=== PATIENT | female | born 1965 | race Caucasian/White ===

== ENCOUNTER 2017-09-28 18:26 | Observation (INO) ==
--- NOTE | 2017-09-28 18:38 | Emergency Department Note ---
Disposition Clinical Impression: Chest pain Qualifiers: Chest pain type: unspecified Qualified Code(s): R07.9 - Chest pain, unspecified Disposition: Admitted As Inpatient Condition: Good Referrals: NONE,PCP [Primary Care Provider] - Forms: ED Satisfaction Letter Time of Disposition: 21:25 Chest Pain HPI - General Chief Complaint: ED Chest Pain Stated Complaint: MIDSTERNAL CHEST TIGHTNESS Time Seen by Provider: 09/28/17 18:30 Source: patient Mode of arrival: ambulatory Limitations: no limitations Vital Signs Reviewed: Yes Nursing Notes Reviewed: Yes - History of Present Illness HPI Narrative: 51-year-old female who presents today with episodes of chest pain. She describes it as substernal. She states it comes and goes. It radiates into her jaw and her left arm. She took some baby aspirin helped her symptoms but it keeps coming back. She is a strong family history of cardiac disease her mom and dad and brother of cardiac disease in her 30-year-old son is alert he had a heart attack. Patient states she is a former smoker. She does have high cholesterol diabetes and hypertension. She says that 2 years ago she had a workup for her heart which did not reveal anything acute. Pt complaint: chest pain - Related Data Home Medications Medication Instructions Recorded Confirmed Aspirin [Lo-Dose Aspirin EC] 81 mg PO DAILY 09/28/17 09/28/17 Metformin HCl [Glucophage] 1,000 mg PO BID 09/28/17 09/28/17 Allergies Allergy/AdvReac Type Severity Reaction Status Date / Time ibuprofen [From Motrin] Allergy See Verified 09/28/17 18:28 Comments morphine Allergy Hives Verified 09/28/17 18:28 sertraline [From Zoloft] Allergy Hives Verified 09/28/17 18:28 acetaminophen AdvReac Gastrointestinal Verified 09/28/17 18:28 [From Excedrin Migraine] Upset aspirin AdvReac Gastrointestinal Verified 09/28/17 18:28 [From Excedrin Migraine] Upset caffeine AdvReac Gastrointestinal Verified 09/28/17 18:28 [From Excedrin Migraine] Upset fenofibrate AdvReac Gastrointestinal Verified 09/28/17 18:28 Upset loratadine AdvReac Gastrointestinal Verified 09/28/17 18:28 Upset pravastatin AdvReac Gastrointestinal Verified 09/28/17 18:28 Upset ropinirole [From Requip] AdvReac Gastrointestinal Verified 09/28/17 18:28 Upset Review of Systems: ROS reviewed and negative except as per HPI Chart generated with voice recognition software Nursing notes reviewed Old records reviewed Chest Pain PMH - Past Medical History Medical history: Reports: COPD, diabetes, hypertension, other (Restless leg syndrome) Surgical history: Reports: Psychiatric history: Reports: depression - Social History Smoking Status: Never smoker Alcohol use: Reports: none Drug use: Reports: none Physical Exam Physical exam General: NAD, VSS Head: normocephalic, atraumatic Eyes: EOMI, PERRLA mouth: moist mucous membranes Neck: NO CLA, Supple Chest wall: normal rise, no crepitus, no deformity noted Lungs: moving air well, no distress Heart: RRR, no murmur Abd: soft, nontender, BS normal : deferred MSK: strength equal in all four extremities Ext: moves all four extremities, no obvious deformities Skin: cap refill normal, warm, dry neuro : CN2-12 grossly intact, A&Ox3 Psych: normal affect, not anxious Course Course Narrative: patient stable on re-examination. ekg unrevealing, cxr unrevealing, labwork shows mild wbc elevation and trop of 0.01 will repeat trop and decide disposition. patient chest pain free at this time 2130 patient chest pain free, but understands even with repeat trop negative, it is too soon to 100% rule out ACS. discussed will keep here, monitor and retest blood. patient comfortable with plan. Dr Chang accepted patient for obs. Vital Signs Temperature 97.8 F 09/28/17 18:32 Pulse Rate 74 09/28/17 18:32 Respiratory Rate 20 09/28/17 18:32 Blood Pressure 141/63 09/28/17 18:32 O2 Sat by Pulse Oximetry 96 09/28/17 18:32 Temperature 97.9 F 09/28/17 18:46 Pulse Rate 68 09/28/17 21:26 Respiratory Rate 18 09/28/17 21:26 Blood Pressure 118/60 09/28/17 21:26 O2 Sat by Pulse Oximetry 98 09/28/17 21:26 Oxygen Delivery Oxygen Delivery Room Air Chest Pain - Medical Records Medical records reviewed: Yes I reviewed the patient's medical records. - Lab Data Lab results reviewed: Yes I reviewed the patient's lab results. Result diagrams: 09/28/17 18:50 09/28/17 18:50 Lab Results 09/28/17 09/28/17 09/28/17 Range/Units 18:50 18:50 18:50 WBC 11.6 H (4.3-11.1) K/mcL RBC 4.92 (3.82-4.97) M/mcL Hgb 14.0 (11.5-15.4) g/dL Hct 42.4 (35.3-44.9) % MCV 86.2 (83.0-100.0) fL MCH 28.5 (28.0-33.3) pg MCHC 33.0 (31.6-35.5) g/dL RDW 12.1 (11.5-14.5) % Plt Count 428 H (140-400) K/mcL MPV 8.7 L (9.4-12.4) fL Immature Gran % 0.3 (0-4) % Seg Neutrophils % 48.5 % Lymphocytes % 40.2 % Monocytes % 9.1 % Eosinophils % 1.1 % Basophils % 0.8 % Neutrophils # 5.6 (1.6-8.9) K/mcL Lymphocytes # 4.7 H (0.6-4.6) K/mcL Monocytes # 1.1 (0.0-1.3) K/mcL Eosinophils # 0.1 (0.0-0.6) K/mcL Basophils # 0.1 (0.0-0.2) K/mcL PT 10.9 (9.4-12.1) Seconds INR 1.0 APTT 36.9 H (26.0-36.0) Seconds Sodium (136-145) mEq/L Potassium (3.5-4.5) mEq/L Chloride (98-109) mEq/L Carbon Dioxide (19-29) mEq/L BUN (7-20) mg/dL Creatinine (0.57-1.11) mg/dL Est GFR ( Amer) (> 60) Est GFR (Non-Af Amer) (> 60) BUN/Creatinine Ratio (6-26) Glucose (70-99) mg/dL Calculated Osmolality (280-300) Calcium (8.6-10.8) mg/dL Troponin I (0-0.03) ng/mL B-Natriuretic Peptide 27 (0-100) pg/mL Urine Color (Yellow) Urine Clarity (Clear) Urine pH (5.0-8.0) pH Units Ur Specific [place] (1.010-1.025) Urine Protein (Neg-Trace) mg/dL Urine Glucose (UA) (Normal) mg/dL Urine Ketones (Negative) mg/dL Urine Blood (Negative) Urine Nitrite (Negative) Urine Bilirubin (Negative) Urine Urobilinogen (Normal) mg/dL Ur Leukocyte Esterase (Negative) Ur Culture Indicated? (NO) Urine Opiates Screen (Dbplzn=894) ng/mL Ur Oxycodone Screen (Cutoff= 100) ng/mL Ur Barbiturates Screen (Kiztjn=297) ng/mL Ur Phencyclidine Scrn (Cutoff=25) ng/mL Ur Amphetamines Screen (Bkusdf=4766) ng/mL U Benzodiazepines Scrn (Biziku=924) ng/mL Urine Cocaine Screen (Cutoff= 300) ng/mL U Marijuana (THC) Screen (Cutoff = 50) ng/mL 09/28/17 09/28/17 09/28/17 Range/Units 18:50 18:50 18:55 WBC (4.3-11.1) K/mcL RBC (3.82-4.97) M/mcL Hgb (11.5-15.4) g/dL Hct (35.3-44.9) % MCV (83.0-100.0) fL MCH (28.0-33.3) pg MCHC (31.6-35.5) g/dL RDW (11.5-14.5) % Plt Count (140-400) K/mcL MPV (9.4-12.4) fL Immature Gran % (0-4) % Seg Neutrophils % % Lymphocytes % % Monocytes % % Eosinophils % % Basophils % % Neutrophils # (1.6-8.9) K/mcL Lymphocytes # (0.6-4.6) K/mcL Monocytes # (0.0-1.3) K/mcL Eosinophils # (0.0-0.6) K/mcL Basophils # (0.0-0.2) K/mcL PT (9.4-12.1) Seconds INR APTT (26.0-36.0) Seconds Sodium 140 (136-145) mEq/L Potassium 3.3 L (3.5-4.5) mEq/L Chloride 99 (98-109) mEq/L Carbon Dioxide 28 (19-29) mEq/L BUN 15 (7-20) mg/dL Creatinine 0.75 (0.57-1.11) mg/dL Est GFR ( Amer) > 60 (> 60) Est GFR (Non-Af Amer) > 60 (> 60) BUN/Creatinine Ratio 20 (6-26) Glucose 130 H (70-99) mg/dL Calculated Osmolality 293 (280-300) Calcium 9.9 (8.6-10.8) mg/dL Troponin I 0.01 (0-0.03) ng/mL B-Natriuretic Peptide (0-100) pg/mL Urine Color Yellow (Yellow) Urine Clarity Clear (Clear) Urine pH 5.0 (5.0-8.0) pH Units Ur Specific [place] 1.015 (1.010-1.025) Urine Protein Negative (Neg-Trace) mg/dL Urine Glucose (UA) 500 H (Normal) mg/dL Urine Ketones Negative (Negative) mg/dL Urine Blood Negative (Negative) Urine Nitrite Negative (Negative) Urine Bilirubin Negative (Negative) Urine Urobilinogen Normal (Normal) mg/dL Ur Leukocyte Esterase Negative (Negative) Ur Culture Indicated? NO (NO) Urine Opiates Screen (Weemab=395) ng/mL Ur Oxycodone Screen (Cutoff= 100) ng/mL Ur Barbiturates Screen (Ofefjm=653) ng/mL Ur Phencyclidine Scrn (Cutoff=25) ng/mL Ur Amphetamines Screen (Fbcudn=0481) ng/mL U Benzodiazepines Scrn (Oyswki=482) ng/mL Urine Cocaine Screen (Cutoff= 300) ng/mL U Marijuana (THC) Screen (Cutoff = 50) ng/mL 09/28/17 09/28/17 Range/Units 18:55 20:38 WBC (4.3-11.1) K/mcL RBC (3.82-4.97) M/mcL Hgb (11.5-15.4) g/dL Hct (35.3-44.9) % MCV (83.0-100.0) fL MCH (28.0-33.3) pg MCHC (31.6-35.5) g/dL RDW (11.5-14.5) % Plt Count (140-400) K/mcL MPV (9.4-12.4) fL Immature Gran % (0-4) % Seg Neutrophils % % Lymphocytes % % Monocytes % % Eosinophils % % Basophils % % Neutrophils # (1.6-8.9) K/mcL Lymphocytes # (0.6-4.6) K/mcL Monocytes # (0.0-1.3) K/mcL Eosinophils # (0.0-0.6) K/mcL Basophils # (0.0-0.2) K/mcL PT (9.4-12.1) Seconds INR APTT (26.0-36.0) Seconds Sodium (136-145) mEq/L Potassium (3.5-4.5) mEq/L Chloride (98-109) mEq/L Carbon Dioxide (19-29) mEq/L BUN (7-20) mg/dL Creatinine (0.57-1.11) mg/dL Est GFR ( Amer) (> 60) Est GFR (Non-Af Amer) (> 60) BUN/Creatinine Ratio (6-26) Glucose (70-99) mg/dL Calculated Osmolality (280-300) Calcium (8.6-10.8) mg/dL Troponin I 0.00 (0-0.03) ng/mL B-Natriuretic Peptide (0-100) pg/mL Urine Color (Yellow) Urine Clarity (Clear) Urine pH (5.0-8.0) pH Units Ur Specific [place] (1.010-1.025) Urine Protein (Neg-Trace) mg/dL Urine Glucose (UA) (Normal) mg/dL Urine Ketones (Negative) mg/dL Urine Blood (Negative) Urine Nitrite (Negative) Urine Bilirubin (Negative) Urine Urobilinogen (Normal) mg/dL Ur Leukocyte Esterase (Negative) Ur Culture Indicated? (NO) Urine Opiates Screen Negative (Bdpoup=268) ng/mL Ur Oxycodone Screen Negative (Cutoff= 100) ng/mL Ur Barbiturates Screen Negative (Biicng=922) ng/mL Ur Phencyclidine Scrn Negative (Cutoff=25) ng/mL Ur Amphetamines Screen Negative (Rbhdaj=6690) ng/mL U Benzodiazepines Scrn Negative (Xrxozp=386) ng/mL Urine Cocaine Screen Negative (Cutoff= 300) ng/mL U Marijuana (THC) Screen Negative (Cutoff = 50) ng/mL - Radiology Data Radiology results reviewed: Yes I reviewed the patient's radiology results. - EKG Data EKG attestation: Yes I reviewed and interpreted this EKG. EKG results narrative: EKG interpreted by myself as a sinus rhythm with a rate of 74 QTc of [address] elevation a prior EKG is not available at this time Heart Score - Score History: Highly Suspicious EKG: Normal Age: 45-65 Risk Factors: Equal/Greater than 3 risk factor or history of atherosclerotic disease Troponin: Less than normal limit HEART Score Total: 5
[2017-09-28] MEDS ORDERED: 0.9 % Sodium Chloride 500 ML IVC ONE (18:44)
[2017-09-28] MEDS ORDERED: Aspirin 81 MG TAB.CHEW PO ONE (18:44)
[2017-09-28] MEDS ORDERED: Nitroglycerin 0.4 MG TAB.SUBL SL ONE (18:44)
[2017-09-28 18:56] LABS: Basophils # 0.1 K/mcL (0.0-0.2); Basophils % 0.8 %; Eosinophils # 0.1 K/mcL (0.0-0.6); Eosinophils % 1.1 %; Hematocrit 42.4 % (35.3-44.9); Immature Granulocytes % 0.3 % (0-4); Lymphocytes # 4.7 K/mcL (0.6-4.6); Lymphocytes % 40.2 %; Mean Corpuscular Hemoglobin 28.5 pg (28.0-33.3); Mean Corpuscular Volume 86.2 fL (83.0-100.0); Mean Platelet Volume 8.7 fL (9.4-12.4); Monocytes # 1.1 K/mcL (0.0-1.3); Monocytes % 9.1 %; Neutrophils # 5.6 K/mcL (1.6-8.9); Platelet Count 428 K/mcL (140-400); Red Blood Count 4.92 M/mcL (3.82-4.97); Red Cell Distribution Width 12.1 % (11.5-14.5); Segmented Neutrophils % 48.5 %
[2017-09-28 19:02] LABS: Prothrombin Time 10.9 Seconds (9.4-12.1)
[2017-09-28 19:04] LABS: Activated Partial Thrombo Time 36.9 Seconds (26.0-36.0)
[2017-09-28 19:06] LABS: Bilirubin,Urine Negative (Negative); Blood,Urine Negative (Negative); Clarity,Urine Clear (Clear); Color,Urine Yellow (Yellow); Glucose,Urine (UA) 500 mg/dL (Normal); Ketones,Urine Negative (Negative); Leukocyte Esterase,Urine Negative (Negative); Nitrite,Urine Negative (Negative); Protein,Urine Negative (Neg-Trace); Specific Gravity,Urine 1.015 (1.010-1.025); Urobilinogen,Urine Normal (Normal)
[2017-09-28 19:10] LABS: BUN/Creatinine Ratio 20 (6-26); Blood Urea Nitrogen 15 mg/dL (7-20); Calcium 9.9 mg/dL (8.6-10.8); Carbon Dioxide 28 mEq/L (19-29); Chloride 99 mEq/L (98-109); Glucose 130 mg/dL (70-99); Osmolality,Calculated 293 (280-300); Potassium 3.3 mEq/L (3.5-4.5); Sodium 140 mEq/L (136-145); eGFR For African Americans > 60 (> 60); eGFR For Non-African Americans > 60 (> 60)
[2017-09-28 19:23] LABS: Amphetamine Screen,Urine Negative ng/mL (Cutoff=1000); Barbiturate Screen,Urine Negative ng/mL (Cutoff=200); Benzodiazepines Screen,Urine Negative ng/mL (Cutoff=200); Cannabinoid Screen,Urine Negative ng/mL (Cutoff = 50); Cocaine Screen,Urine Negative ng/mL (Cutoff= 300); Opiate Screen,Urine Negative ng/mL (Cutoff=300); Phencyclidine Screen,Urine Negative ng/mL (Cutoff=25)
[2017-09-28] MEDS ORDERED: Mag Hydrox/Al Hydrox/Simeth 30 ML UDC PO PRN (22:14)
[2017-09-28] MEDS ORDERED: Ondansetron ODT 4 MG TAB.RAPDIS SL PRN (22:14)
[2017-09-28] MEDS ORDERED: Acetaminophen 325 MG TABLET PO PRN (22:14)
[2017-09-28] MEDS ORDERED: MOM Conc 10 ML UD.LIQ PO PRN (22:14)
[2017-09-29] MEDS ORDERED: *HR* Metformin 500 MG TABLET PO SCH (08:00)
[2017-09-29] MEDS ORDERED: Aspirin Enteric Coated 81 MG Tablet PO SCH (09:00)
[2017-09-29 09:05] LABS: Basophils # 0.1 K/mcL (0.0-0.2); Basophils % 0.9 %; Eosinophils # 0.1 K/mcL (0.0-0.6); Eosinophils % 1.1 %; Hemoglobin 13.8 g/dL (11.5-15.4); Immature Granulocytes % 0.2 % (0-4); Lymphocytes % 34.1 %; Mean Corpuscular HGB Conc 32.9 g/dL (31.6-35.5); Mean Corpuscular Hemoglobin 28.6 pg (28.0-33.3); Mean Platelet Volume 8.9 fL (9.4-12.4); Monocytes # 0.7 K/mcL (0.0-1.3); Monocytes % 8.2 %; Neutrophils # 4.8 K/mcL (1.6-8.9); Platelet Count 406 K/mcL (140-400); Red Blood Count 4.83 M/mcL (3.82-4.97); Red Cell Distribution Width 12.4 % (11.5-14.5); Segmented Neutrophils % 55.5 %
[2017-09-29 09:13] LABS: BUN/Creatinine Ratio 16 (6-26); Blood Urea Nitrogen 13 mg/dL (7-20); Calcium 9.6 mg/dL (8.6-10.8); Carbon Dioxide 28 mEq/L (19-29); Chloride 100 mEq/L (98-109); Glucose 272 mg/dL (70-99); Osmolality,Calculated 300 (280-300); Potassium 3.6 mEq/L (3.5-4.5); Sodium 140 mEq/L (136-145); eGFR For African Americans > 60 (> 60); eGFR For Non-African Americans > 60 (> 60)
[2017-09-29 10:31] VITALS: BP 120/69
--- NOTE | 2017-09-29 14:22 | Internal Med History&Physical ---
Date of Encounter: 09/29/17 Time of Encounter: 13:50 Assessment and Plan (1) Chest pain Current visit: Yes Status: Acute Repeat cardiac enzymes were ordered through emergency room. Further workup will be done as needed. Qualifiers: Chest pain type: unspecified Qualified Code(s): R07.9 - Chest pain, unspecified Internal Medicine - H&P: HPI Chief complaint: Chest discomfort Admitted From: Home Plans for Post Hospital Care: Home History of present illness: Ms. Bowling is a 51 year old female who came to emergency room complaining of discomfort in her chest onset the evening of September 27 while at leisure. She describes it as a substernal discomfort that radiated waxed and waned over the next Vertie 6 hours. Seem to radiate to her jaw left arm and back. She came to emergency room is evaluated and was admitted to [facility] floor for ongoing care needs. She states she had a previous similar episode of pain approximate 2014. She did not seek medical attention at that time. She does not get chest pain on exertion but states she gets minimal dyspneic on heavy exertion. She has history of hypertension but denies TN heart failure angina DVT or pulmonary embolus. She had a low level Regadenoson EST 03/03/2016 which showed no significant EKG changes but a small mild intensity reversible perfusion defect in the mid apical anterior lateral wall consistent with small area of ischemia although artifact could not be completely excluded. An echocardiogram 2016 showed LVEF of 60% with normal LV size and systolic function. There was mild diastolic dysfunction with E/A ratio of 0.7. There was trileaflet mildly sclerotic aortic valve without stenosis, mild to moderate AI, and mild MR. She denies DVT or pulmonary embolus. She states she is pain-free at this time and wishes to be discharged home. Past Med Surg Social Fam HX - Past Medical History Medical history: COPD, diabetes, hyperlipidemia, hypertension, other Psychiatric history: anxiety, depression - Past Surgical History Surgical History: - Social History Smoking Status: Former smoker Smokeless Tobacco Status: No Alcohol use: none Drug use: none Internal Medicine - H&P: Meds Aspirin [Lo-Dose Aspirin EC] 81 mg PO DAILY 09/28/17 [History] Metformin HCl [Glucophage] 1,000 mg PO BID 09/28/17 [History] Empagliflozin [Jardiance] 10 mg PO 09/29/17 [History] Glimepiride [Amaryl] 3 mg PO BID 09/29/17 [History] 3 Allergy/AdvReac Type Severity Reaction Status Date / Time ibuprofen [From Motrin] Allergy See Verified 09/28/17 18:28 Comments morphine Allergy Hives Verified 09/28/17 18:28 sertraline [From Zoloft] Allergy Hives Verified 09/28/17 18:28 acetaminophen AdvReac Gastrointestinal Verified 09/28/17 18:28 [From Excedrin Migraine] Upset aspirin AdvReac Gastrointestinal Verified 09/28/17 18:28 [From Excedrin Migraine] Upset caffeine AdvReac Gastrointestinal Verified 09/28/17 18:28 [From Excedrin Migraine] Upset fenofibrate AdvReac Gastrointestinal Verified 09/28/17 18:28 Upset loratadine AdvReac Gastrointestinal Verified 09/28/17 18:28 Upset pravastatin AdvReac Gastrointestinal Verified 09/28/17 18:28 Upset ropinirole [From Requip] AdvReac Gastrointestinal Verified 09/28/17 18:28 Upset All Systems PM: A 10-system review of systems was performed and is negative for pertinent findings except as documented above in the HPI. Review of systems: Gen.: She states her weight has been stable the past few months Cardiovascular: As per history of present illness Respiratory: She smoked from age [age] up to 1-1/2 packs per day. She reports a diagnosis of COPD but has not had PFTs. She does not use home oxygen. GI: She denies disorders of her liver gallbladder or exocrine pancreas : She denies hematuria dysuria or kidney stones Neurologic: She denies large distribution strokes or seizures. Endocrine: She was diagnosed with DM 2 in 2013. She has history of hyperlipidemia and states she has a "thyroid abnormality" but does not know details. TSH was normal at 3.610 on 07/05/2017. Hematology/oncology: She denies blood disorders cancers or anemia Psychiatric: She has anxiety and depression but does not follow at mental health clinic any longer. [place] skeletal: She denies DJD gout or other bone joint or muscle disorders. - Constitutional Vitals: Temp Pulse Resp BP Pulse Ox 98.2 F 85 18 120/69 96 09/29/17 10:26 09/29/17 10:26 09/29/17 10:26 09/29/17 10:26 09/29/17 10:26 Exam: Gen.: She is a well-developed well-nourished female lying quietly in bed who appears in no acute distress HEENT: Head is atraumatic and normocephalic. Eyes: EOMI. There is no scleral icterus. Mouth: Mucosa is moist. Neck: Supple and nontender. There is no thyromegaly or adenopathy noted. Heart: Regular without murmurs gallops or ectopics Chest: She is tender in her chest wall to compression but states "that is not the pain" Lungs: No wheezes or crackles are heard. Abdomen: Soft and nontender. No masses or guarding noted. Extremities: There is no cyanosis edema or clubbing noted. Dorsalis pedis and posttibial pulses are 1-2 over 2 bilaterally. Neurologic: Mental status: She is talkative and a good historian. Cranial nerves: Smile is symmetric. Forehead wrinkles bilaterally. Tongue protrudes midline. EOMI. Motor: There is no pronator drift. Cerebellar: Finger to nose is intact bilaterally. Skin: Warm and dry Internal Med - H&P Results - Labs CBC & Chem 7: 09/29/17 08:37 09/29/17 08:37 Labs: Short CBC 09/29/17 Range/Units 08:37 WBC 8.7 (4.3-11.1) K/mcL Hgb 13.8 (11.5-15.4) g/dL Hct 42.0 (35.3-44.9) % Plt Count 406 H (140-400) K/mcL Neutrophils # 4.8 (1.6-8.9) K/mcL BMP 09/29/17 08:37 Sodium 140 Potassium 3.6 Chloride 100 Carbon Dioxide 28 BUN 13 Creatinine 0.82 Glucose 272 H Calcium 9.6 Cardiac Enzymes 09/29/17 Range/Units 08:37 Troponin I 0.01 (0-0.03) ng/mL
--- NOTE | 2017-09-29 14:46 | Discharge Summary ---
Date of Encounter: 09/29/17 Time of Encounter: 13:50 - Discharge Diagnosis (1) Chest pain Priority: Primary Status: Resolved Qualifiers: Chest pain type: unspecified Qualified Code(s): R07.9 - Chest pain, unspecified - Discharge Medications Home Medications: Aspirin [Lo-Dose Aspirin EC] 81 mg PO DAILY 09/28/17 [History] Metformin HCl [Glucophage] 1,000 mg PO BID 09/28/17 [History] Amitriptyline [Elavil] 50 mg PO HS 09/29/17 [History] Atorvastatin [Lipitor] 20 mg PO HS 09/29/17 [History] Empagliflozin [Jardiance] 10 mg PO DAILY 09/29/17 [History] FLUoxetine HCl [Prozac] 20 mg PO DAILY 09/29/17 [History] Glimepiride [Amaryl] 3 mg PO BID 09/29/17 [History] Isosorbide MONOnitrate (24 HR) [Imdur] 30 mg PO DAILY 09/29/17 [History] Lisinopril 2.5 mg PO DAILY 09/29/17 [History] Loratadine [Allergy Relief] 10 mg PO DAILY 09/29/17 [History] Nitroglycerin [Nitrostat] 0.4 mg SL Q5-10MIN PRN MDD 1.2 mg 09/29/17 [History] Propranolol [Inderal] 20 mg PO BID 09/29/17 [History] Ranitidine HCl [Zantac] 300 mg PO BID PRN 09/29/17 [History] SUMAtriptan succinate [Imitrex] 25 mg PO Q2H PRN MDD 100 mg 09/29/17 [History] hydrOXYzine HCl [Hydroxyzine HCl] 25 mg PO BID 09/29/17 [History] hydroCHLOROthiazide [Hydrochlorothiazide] 12.5 mg PO DAILY 09/29/17 [History] Allergies/Adverse Reactions: 3 Allergy/AdvReac Type Severity Reaction Status Date / Time ibuprofen [From Motrin] Allergy See Verified 09/28/17 18:28 Comments morphine Allergy Hives Verified 09/28/17 18:28 sertraline [From Zoloft] Allergy Hives Verified 09/28/17 18:28 acetaminophen AdvReac Gastrointestinal Verified 09/28/17 18:28 [From Excedrin Migraine] Upset aspirin AdvReac Gastrointestinal Verified 09/28/17 18:28 [From Excedrin Migraine] Upset caffeine AdvReac Gastrointestinal Verified 09/28/17 18:28 [From Excedrin Migraine] Upset fenofibrate AdvReac Gastrointestinal Verified 09/28/17 18:28 Upset loratadine AdvReac Gastrointestinal Verified 09/28/17 18:28 Upset pravastatin AdvReac Gastrointestinal Verified 09/28/17 18:28 Upset ropinirole [From Requip] AdvReac Gastrointestinal Verified 09/28/17 18:28 Upset Date of admission: 09/28/17 21:53 Primary care physician: Bill Bowie D.O.. - Patient Status Disposition: Home, Self-Care Condition: Good Functional capacity at discharge: independent ambulation Overall status at discharge: patient is progressing back to baseline - Discharge Instructions Follow Up With: Bill Bowie DO [Partnered Physician] - 1 week - Diet and Activity Activity: resume usual activities as tolerated Diet: advance to your usual diet Hospital course: Ms. Bowling is a 51 year old female who came to emergency room complaining of discomfort in her chest onset the evening of September 27 while at leisure. She describes it as a substernal discomfort that waxed and waned over the next 36 hours. It seemed to radiate to her jaw, left arm, and back. She came to emergency room and was evaluated and admitted to [facility] for ongoing care needs. Initial orders were written by the emergency room physician. I saw her on September 29 and performed the history physical and discharge. Repeat cardiac enzymes showed no evidence of myocardial damage. When I saw her I did not think pain was likely of myocardial ischemic origin. The origin of the pain was not determined with certainty. She denied cough or dyspnea. Chest x-ray was unremarkable. When I saw her she stated she felt back to her baseline and felt stable for discharge home. She will follow with her PCP within one week. She stated she gets a new bottle of Nitrostat monthly but has never used it. I reviewed her medication list and note she was taking HCTZ 25 mg daily. I reduced the dose at discharge to 12.5 mg to lessen risk of hypokalemia. Her admission potassium level was 3.3 but had normalized to 3.6 by the day of discharge. She will continue her other medications as at home. - Time Spent with Patient Total time spent providing and/or coordinating discharge services: - Constitutional Vitals: Temp Pulse Resp BP Pulse Ox 98.2 F 85 18 120/69 96 09/29/17 10:26 09/29/17 10:26 09/29/17 10:26 09/29/17 10:09/29/17 10:26
--- NOTE | 2017-09-29 20:07 | Electrocardiograph Report ---
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
--- NOTE | 2017-09-29 20:17 | Electrocardiograph Report ---
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
== END 2017-09-29 15:25 | disposition home or self-care (01) ==
LOC: EMEROOPIK 18:26 → INPPIK 18:26
PROVIDERS: ADMIT Internal Medicine; ATTEND Internal Medicine